=== PATIENT | male | born 1945 | race Caucasian/White ===

== ENCOUNTER 2017-03-16 13:05 | Emergency (ER) | payer MEDICARE ==
[2017-03-16 14:17] LABS: BASOPHILS 0.4 % (0-2); EOSINOPHILS 2.3 % (0-7); HEMATOCRIT 38.1 % (42.0-54.0); HEMOGLOBIN 12.6 g/dL (13.5-17.5); IMMATURE GRANULOCYTES 0.2 % (0-5); LYMPHOCYTES 18.2 % (15-50); MCH 30.4 pg (26.0-34.0); MCHC 33.1 g/dL (31.0-37.0); MONOCYTES 11.3 % (2-11); NEUTROPHILS 67.6 % (40-80); PLATELET COUNT 189 10x3/uL (130-400); RBC 4.14 10x6/uL (4.20-6.10); RDW 13.6 % (11.5-14.5); WBC 5.2 10x3/uL (4.8-10.8)
[2017-03-16 14:48] LABS: ALBUMIN 4.1 g/dL (3.4-5.0); BILIRUBIN - TOTAL 0.45 mg/dL (0.2-1.3); CALCIUM 8.8 mg/dL (8.5-10.1); CARBON DIOXIDE 28.5 mmol/L (21.0-32.0); CREATININE - SERUM 1.1 mg/dL (0.6-1.3); POTASSIUM - SERUM 4.5 mmol/L (3.5-5.1); PROTEIN - SERUM 7.2 g/dL (6.4-8.2)
[2017-03-16 17:46] LABS: CREATINE KINASE 86 UL (21-232)
[2017-03-16 17:48] LABS: TROPONIN-I < 0.017 ng/mL (0.000-0.060)
== END 2017-03-16 18:47 | disposition home or self-care (01) ==
LOC: D.ER 13:05
PROVIDERS: Emergency Medicine; Nurse Practitioner Family
DX: R11.0 Nausea (principal); K29.00 Acute gastritis without bleeding; K21.9 Gastro-esophageal reflux disease without esophagitis; I10 Essential (primary) hypertension; I25.10 Atherosclerotic heart disease of native coronary artery without angina pectoris; E78.5 Hyperlipidemia, unspecified

== ENCOUNTER 2017-04-06 04:14 | Emergency (ER) | payer MEDICARE ==
[2017-04-06 04:54] LABS: APPEARANCE CLEAR (CLEAR); BILIRUBIN NEGATIVE (NEGATIVE); COLOR YELLOW (YELLOW); GLUCOSE 50 mg/dL (NEGATIVE); KETONE SMALL mg/dL (NEGATIVE); NITRITE NEGATIVE (NEGATIVE); PROTEIN 1+ mg/dL (NEGATIVE); SPECIFIC GRAVITY 1.025 (1.005-1.020); UROBILINOGEN NORMAL (NORMAL)
[2017-04-06 04:55] LABS: BACTERIA MODERATE /hpf (NONE SEEN); EPITHELIAL CELLS 0-5 /hpf (0-5); MUCUS >1+ /lpf (NONE SEEN); RED CELLS - URINE 0-5 /hpf (0-5); WHITE CELLS - URINE 0-5 /hpf (0-5)
[2017-04-06 05:11] LABS: HEMATOCRIT 40.6 % (42.0-54.0); HEMOGLOBIN 13.7 g/dL (13.5-17.5); LYMPHOCYTES 5.2 % (15-50); MCH 29.5 pg (26.0-34.0); MCHC 33.7 g/dL (31.0-37.0); MCV 87.5 fL (80.0-100.0); MEAN PLATELET VOLUME 8.7 fL (7.4-10.4); NEUTROPHILS 89.4 % (40-80); PLATELET COUNT 206 10x3/uL (130-400); RBC 4.64 10x6/uL (4.20-6.10); RDW 13.3 % (11.5-14.5); WBC 7.7 10x3/uL (4.8-10.8)
[2017-04-06 05:29] LABS: ALBUMIN 4.3 g/dL (3.4-5.0); ANION GAP 15.8 mmol/L (8-16); BILIRUBIN - TOTAL 0.67 mg/dL (0.2-1.3); CALCIUM 8.8 mg/dL (8.5-10.1); CARBON DIOXIDE 24.9 mmol/L (21.0-32.0); CREATININE - SERUM 1.2 mg/dL (0.6-1.3); POTASSIUM - SERUM 3.7 mmol/L (3.5-5.1); PROTEIN - SERUM 8.2 g/dL (6.4-8.2)
[2017-04-06 08:28] LABS: CREATINE KINASE 77 UL (21-232)
[2017-04-06 08:29] LABS: TROPONIN-I < 0.017 ng/mL (0.000-0.060)
== END 2017-04-06 09:15 | disposition home or self-care (01) ==
LOC: D.ER 04:14
PROVIDERS: Family Medicine
DX: R11.10 Vomiting, unspecified (principal)

== ENCOUNTER → 2017-04-15 08:35 | Outpatient (CLI) | payer MEDICARE ==
--- NOTE | ~2017-04-15 | EC ---
PATIENT:HARMAN ESPINOZA DATE OF SERVICE: 04/15/17 SEX: M MEDICAL RECORD: [id number] DATE OF : 49 LOCATION:[facility] AGE OF PATIENT: 72 ADMISSION DATE: 04/15/17 REFERRING PHYSICIAN: INTERPRETING PHYSICIAN: MAMI LEYVA MD ECHOCARDIOGRAM REPORT ECHO CHARGES 4 ECHO COMPLETE CLINICAL DIAGNOSIS: CHF/CAD/CABG/CHEST PAIN ECHOCARDIOGRAPHIC MEASUREMENTS (adult normal given) AC root (d.<3.7cm) 3.5 cm LV Septum d (<1.2 cm> 1.3 cm Valve Excursion 1.2 cm LV Septum (systole) 1.8 cm Left Atria (s.<4.0cm> 4.7 cm LVPW d(<1.2cm) 1.5 cm RV (d.<2.3cm) 4.3 cm LVPW (sytole) 1.9 cm LV diastole(<5.6CM) 5.7 cm MV E-F(>70mm/sec) cm LV systole 3.8 cm LVOT Diameter 1.2 cm MV exc.(>10mm) cm Est.ejection fraction (50-75%) % Pericardial Effusion N DOPPLER: LVIT cm/sec A 103 cm/sec E 203 cm/sec LA cm/sec RVSP 40 mmHg LVOT 152 cm/sec AOP1/2T m/s Asc. 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 FINDINGS: 1. The left ventricle is shown to have mild to moderate left ventricular hypertrophy. Inflow characteristics are normal. 2. The left atrium is moderately dilated. 3. The aortic valve is difficult to visualize, appears to be mildly thickened ECHOCARDIOGRAM REPORT [id number] HARMAN ESPINOZA and mildly sclerotic without any evidence of significant stenosis. 4. The mitral valve has no significant mitral regurgitation. There is elevation in the inflow pressures across the mitral valve at 26 mmHg, which depending on the size of the valve may be normal for it function. 5. The overall function of the left ventricle is difficult to gauge. There is significant asynchronous wall motion and there is a septal bounce seen. The overall ejection fraction still appears to be diminished in the 35% range. 6. Tricuspid valve has mild tricuspid regurgitation. 7. The RVSP is 40 mmHg. 8. The right ventricle and right atrium are both mildly dilated with good function. By pressure halftime the mitral valve area is in the 1.4 cm-squared, but again without knowledge of the size of the prosthetic valve. It is indeterminate whether this is significant. CONCLUSIONS: The patient has evidence of a dilated cardiomyopathy with mild elevations across the bioprosthetic mitral valve in the pressures. 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
== END | disposition home or self-care (01) ==
LOC: D.ECHO 08:35
DX: I50.9 Heart failure, unspecified (principal); I25.10 Atherosclerotic heart disease of native coronary artery without angina pectoris; Z95.1 Presence of aortocoronary bypass graft; R07.9 Chest pain, unspecified